=== PATIENT | male | born 1980 | race American Indian/Alaskan Native ===

== ENCOUNTER 2018-01-02 11:38 | Emergency (ER) | payer OTHER ==
[2018-01-02 11:43] VITALS: BP 144/84; PULSE 80; RESP 18; TEMP 98.7; O2SAT 97
[2018-01-02] MEDS ORDERED: Ketamine 50 mg/ml Inj (10 ml) IM STA (11:52)
--- NOTE | 2018-01-02 12:10 | C.PDOC ---
History Of Present Illness 37-year-old male presents to the emergency room with right knee pain and swelling for two days. Patient states he twisted his right knee last week at work and then again two days ago as he almost slipped off a truck, twisting the same knee. He has been icing his knee at home with no relief. Patient denies any numbness or tingling. Time Seen by Provider: 01/02/18 11:48 Chief Complaint (Nursing): Lower Extremity Problem/Injury History Per: Patient History/Exam Limitations: no limitations Onset/Duration Of Symptoms: Days - Knee Description Of Injury: Twisted Currently Unable To: Other (walk/bend without pain) Alleviating Factor(s): Ice Therapy Past Medical History Reviewed: Historical Data, Nursing Documentation, Vital Signs Vital Signs: Last Vital Signs Temp 98.7 F 01/02/18 11:41 Pulse 80 01/02/18 11:41 Resp 18 01/02/18 12:40 BP 144/84 01/02/18 11:41 Pulse Ox 97 01/02/18 13:09 Family History: States: No Known Family Hx - Social History Hx Alcohol Use: Yes Hx Substance Use: No - Immunization History Hx Tetanus Toxoid Vaccination: No Hx Influenza Vaccination: No Hx Pneumococcal Vaccination: No Review Of Systems Except As Marked, All Systems Reviewed And Found Negative. Musculoskeletal: Positive for: Leg Pain (right knee pain) Neurological: Negative for: Weakness, Numbness, Other (tingling) Physical Exam - Physical Exam Appears: Well, Non-toxic, No Acute Distress Skin: Warm, Dry, No Rash, No Ecchymosis Head: Atraumatic, Normacephalic Eye(s): bilateral: Normal Inspection Oral Mucosa: Moist Extremity: Normal ROM, Tenderness (to anterior aspect of right knee), No Calf Tenderness, No Deformity, Swelling (to right knee), Other (No crepitus) Pulses: Right Dorsalis Pedis: Normal Neurological/Psych: Oriented x3, Normal Speech, Normal Motor, Normal Sensation Gait: Steady ED Course And Treatment O2 Sat by Pulse Oximetry: 97 (RA) Pulse Ox Interpretation: Normal Medical Decision Making Medical Decision Making: Impression: Right knee pain and swelling Plan: * X-ray right knee * Toradol 30 mg IM Progress: Xray viewed by me showing no acute fracture or dislocation, (+) suprapatellar effusion Knee immobilizer applied by CP Disposition Counseled Patient/Family Regarding: Studies Performed, Diagnosis, Need For Followup, Rx Given - Disposition Referrals: Carolee Madrigal MD [Staff Provider] - Disposition: HOME/ ROUTINE Disposition Time: 12:10 Condition: STABLE Additional Instructions: Follow up with your primary medical doctor or clinic or orthopedic in 1 week for further evaluation if the pain persists. Take analgesic as needed. Return to the emergency department at any time if symptoms persist or worsen. Prescriptions: Ibuprofen [Motrin] 600 mg PO Q8 #30 tab Instructions: Knee Sprain (DC) Forms: [employer] (German), Work Excuse - POA Present On Arrival: None - Clinical Impression Clinical Impression: Knee sprain, Knee effusion - PA / [employer] / Resident Statement MD/DO has reviewed & agrees with the documentation as recorded. - Scribe Statement The provider has reviewed the documentation as recorded by the Scribe (Doris Matos) All medical record entries made by the Scribe were at my direction and personally dictated by me. I have reviewed the chart and agree that the record accurately reflects my personal performance of the history, physical exam, medical decision making, and the department course for this patient. I have also personally directed, reviewed, and agree with the discharge instructions and disposition.
--- NOTE | 2018-01-02 12:17 | RAD ---
Date of service: 01/02/2018 PROCEDURE: Right Knee Radiographs. HISTORY: pain s.p twist injury COMPARISON: None. FINDINGS: BONES: Normal. No fracture. JOINTS: Normal. No osteoarthritis. JOINT EFFUSION: Suprapatellar joint effusion, moderate. OTHER FINDINGS: None. IMPRESSION: No acute osseous or articular abnormalities. Suprapatellar joint effusion
== END 2018-01-02 13:09 | disposition home or self-care (01) ==
LOC: C.ER 11:38
DX: S83.91XA Sprain of unspecified site of right knee, initial encounter (principal); X50.9XXA Other and unspecified overexertion or strenuous movements or postures, initial encounter; M25.461 Effusion, right knee
CPT/HCPCS: 73562; 96372; 99285; J1885